=== PATIENT | male | born 1960 | race Two or more races ===

== ENCOUNTER 2019-04-11 18:47 | Emergency (ER) | payer OTHER ==
[2019-04-11] MEDS ORDERED: LIDOCAINE 5% PATCH TOPICAL STA (19:20)
[2019-04-11] MEDS ORDERED: KETOROLAC 30 MG/ML 1 ML VIAL IM STA (19:20)
[2019-04-11] MEDS ORDERED: HYDROcodone/APAP 5-325MG 1 EACH TAB PO STA (19:20)
--- NOTE | 2019-04-11 19:27 | ED ---
Back Pain HPI - General Chief Complaint: Back Pain/Injury Stated Complaint: fell down stairs/back pain Time Seen by Provider: 04/11/19 18:59 Source: patient Limitations: no limitations - History of Present Illness Initial Comments: 58-year-old male patient presents to the emergency department today for evaluation of right sided mid back pain. Patient states yesterday afternoon he fell down approximate 6 steps. Patient states he fell hitting his back on the edge of the stairs. Patient states he's been having significant pain to the area since. Patient states the pain worsens with any type of movement or deep breathing. Patient denies any shortness of breath, cough, hemoptysis with this. He denies hitting his head or losing consciousness during the fall. Denies any other injuries. States he has been urinating without difficulty, denies any hematuria. Denies any abdominal pain. Patient denies any headache, neck pain, chest pain, dizziness, weakness, nausea, vomiting, or difficulties with bowel movements or urination. - Related Data Previous Rx's Medication Instructions Recorded Cephalexin [Keflex] 500 mg PO Q6HR #40 cap 04/11/19 Ketorolac [Toradol] 10 mg PO Q6HR #12 tab 04/11/19 Lidocaine 5% Patch [Lidoderm] 1 patch TOPICAL DAILY #10 patch 04/11/19 Allergies Allergy/AdvReac Type Severity Reaction Status Date / Time No Known Allergies Allergy Verified 04/11/19 18:57 Review of Systems ROS Statement: Those systems with pertinent positive or pertinent negative responses have been documented in the HPI. ROS Other: All systems not noted in ROS Statement are negative. Past Medical History Past Medical History: No Reported History History of Any Multi-Drug Resistant Organisms: None Reported Past Surgical History: Hernia Repair Past Psychological History: No Psychological Hx Reported Smoking Status: Current every day smoker Past Alcohol Use History: None Reported Past Drug Use History: None Reported General Exam Limitations: no limitations General appearance: alert, in no apparent distress, other (Physical well- developed, well-nourished adult male patient in mild distress related to pain. Vital signs upon presentation are temperature 99.3F, pulse 88, respirations 18, blood pressure 124/74, pulse ox 96% on room air.) Eye exam: Present: normal appearance, PERRL, EOMI. Absent: scleral icterus, conjunctival injection, periorbital swelling ENT exam: Present: normal exam, normal oropharynx, mucous membranes moist Neck exam: Present: normal inspection, full ROM, other (Nontender, no step-off, no deformity to firm midline palpation of the posterior cervical spine. Full range of motion without pain or limitation.). Absent: tenderness, meningismus, lymphadenopathy Respiratory exam: Present: normal lung sounds bilaterally, other (Right lower posterior rib tenderness. No crepitus or bony step-off noted.). Absent: respiratory distress, wheezes, rales, rhonchi, stridor Cardiovascular Exam: Present: regular rate, normal rhythm, normal heart sounds. Absent: systolic murmur, diastolic murmur, rubs, gallop, clicks GI/Abdominal exam: Present: soft, normal bowel sounds. Absent: distended, tenderness, guarding, rebound, rigid Back exam: Present: normal inspection, other (Nontender, no step-off, no deformity to firm midline palpation of the thoracic and lumbar vertebrae. ). Absent: vertebral tenderness Neurological exam: Present: alert, oriented X3, CN II-XII intact Psychiatric exam: Present: normal affect, normal mood Skin exam: Present: warm, dry, intact, normal color. Absent: rash Course Vital Signs 04/11/19 04/11/19 04/11/19 18:55 19:10 19:26 Temperature 99.3 F Pulse Rate 88 Respiratory 18 18 16 Rate Blood Pressure 124/74 O2 Sat by Pulse 96 Oximetry Medical Decision Making - Medical Decision Making 58-year-old male patient presents to the emergency department today for evaluation of right posterior rib pain after experiencing a fall down 6 steps last evening. Physical examination did reveal an abrasion and tenderness over the right posterior lower ribs and right flank. Urinalysis was obtained and did show evidence for gross hematuria. Did perform CT of the abdomen and pelvis with contrast which showed no evidence for acute abnormalities, normal kidneys, normal ribs. Urinalysis did have 33 white blood cells and presence of bacteria, this was sent for culture. Will start Keflex for urinary tract infection. He will be treated for clinical rib fracture with blood patches, Toradol, and a starter pack of Tylenol for codeine. He is given incentive spirometry instructed regarding coughing and deep breathing exercises. He'll be given phone number for urology for follow-up regarding the UTI. He is instructed to follow-up with his primary care physician for recheck in 1-2 days. Return parameters were discussed in detail. He verbalizes understanding and agrees this plan - Lab Data Lab Results 04/11/19 Range/Units 19:30 Urine Color Yellow Urine Appearance Clear (Clear) Urine pH 6.0 (5.0-8.0) Ur Specific [place] 1.013 (1.001-1.035) Urine Protein Negative (Negative) Urine Glucose (UA) Negative (Negative) Urine Ketones Negative (Negative) Urine Blood Small H (Negative) Urine Nitrite Negative (Negative) Urine Bilirubin Negative (Negative) Urine Urobilinogen <2.0 (<2.0) mg/dL Ur Leukocyte Esterase Large H (Negative) Urine RBC 11 H (0-5) /hpf Urine WBC 33 H (0-5) /hpf Ur Squamous Epith Cells 3 (0-4) /hpf Urine Mucus Occasional H (None) /hpf Urine Yeast (Budding) Occasional H (None) /hpf - Radiology Data Radiology results: report reviewed, image reviewed 5 views of the right ribs and chest are obtained. Report was reviewed in its entirety. Impression by Dr. Darcy Foley shows no acute process. CT of the abdomen and pelvis was obtained with contrast. Report was reviewed in its entirety. Impression by Dr. Darcy Foley shows no acute abdomen ALLERGIES. Disposition Clinical Impression: Right rib fracture Disposition: HOME SELF-CARE Condition: Good Instructions (If sedation given, give patient instructions): Urinary Tract Infection in Men (ED), Rib Fracture (ED) Additional Instructions: Use medications as directed for pain control. Perform coughing and deep breathing exercises as directed at least 10 times an hour while awake to prevent pneumonia. Complete antibiotic prescription for urinary tract infection. Follow up with urologist for further evaluation. Return to the emergency department immediately for any new, worsening, or concerning symptoms. Prescriptions: Cephalexin [Keflex] 500 mg PO Q6HR #40 cap Lidocaine 5% Patch [Lidoderm] 1 patch TOPICAL DAILY #10 patch Ketorolac [Toradol] 10 mg PO Q6HR #12 tab Is patient prescribed a controlled substance at d/c from ED?: No Referrals: Rohan Soares MD [STAFF PHYSICIAN] - 1-2 days Time of Disposition: 21:37
[2019-04-11 19:48] LABS: Appearance,Urine Clear (Clear); Bilirubin,Urine Negative (Negative); Blood,Urine Small (Negative); Budding Yeast,Urine Occasional /hpf; Color,Urine Yellow; Glucose,Urine (UA) Negative (Negative); Ketones,Urine Negative (Negative); Leukocyte Esterase,Urine Large (Negative); Mucus,Urine Occasional /hpf; Nitrite,Urine Negative (Negative); Protein,Urine Negative (Negative); RBC,Urine 11 /hpf (0-5); Specific Gravity,Urine 1.013 (1.001-1.035); Squamous Epithelial Cell,Urine 3 /hpf (0-4); Urobilinogen,Urine <2.0 mg/dL (<2.0); WBC,Urine 33 /hpf (0-5)
--- NOTE | 2019-04-11 20:18 | XR ---
PROCEDURE: XR ribs RT w pa chest xray - 5V DATE AND TIME: 04/11/2019 7:39 PM CLINICAL INDICATION: Right rib pain posteriorly, following fall yesterday TECHNIQUE: Department protocol COMPARISON: None FINDINGS: There is no fracture or malalignment. No pleural effusion or pneumothorax. The soft tissues are unremarkable. No incidental findings. IMPRESSION: NO ACUTE PROCESS.
--- NOTE | 2019-04-11 21:33 | CT ---
EXAMINATION TYPE: CT abdomen pelvis w con DATE OF EXAM: 04/11/2019 COMPARISON: None HISTORY: Pt fell down backward down 6 stairs yesterday. Thoracolumbar pain and bruising CT DLP: 570 mGycm Automated exposure control for dose reduction was used. TECHNIQUE: Helical acquisition of images was performed from the lung bases through the pelvis. CONTRAST: Performed without Oral Contrast and with IV Contrast, patient injected with 100 mL of Isovu e 300. FINDINGS: LUNG BASES: No significant abnormality is appreciated. LIVER/GB: No significant abnormality is appreciated. PANCREAS: No significant abnormality is seen. SPLEEN: No significant abnormality is seen. ADRENALS: No significant abnormality is seen. KIDNEYS: No significant abnormality is seen. FREE AIR: No free air is visualized. RETROPERITONEAL ADENOPATHY: None visualized REPRODUCTIVE ORGANS: No significant abnormality is seen URINARY BLADDER: No significant abnormality is seen. PELVIC ADENOPATHY: None visualized. OSSEOUS STRUCTURES: No significant abnormality is seen. Spine is negative.1 BOWEL: No significant abnormality is seen. OTHER: No acute vascular findings. IMPRESSION: NO ABNORMALITIES.
[2019-04-11] MEDS ORDERED: CEPHALEXIN 500MG STARTER PACK 4 CAP BTL PO STA (21:38)
[2019-04-11] MEDS ORDERED: ACET/COD 300 MG/30 MG STARTER PACK 6 TAB BTL PO STA (21:38)
[2019-04-11 21:49] VITALS: BP 121/64; PULSE 74; RESP 20; TEMP 98.1
== END 2019-04-11 21:45 | disposition home or self-care (01) ==
LOC: EC 18:47
DX: S22.31XA Fracture of one rib, right side, initial encounter for closed fracture (principal); R31.0 Gross hematuria; F17.200 Nicotine dependence, unspecified, uncomplicated; W10.9XXA Fall (on) (from) unspecified stairs and steps, initial encounter
CPT/HCPCS: 81001; 71101; 74177; 99284; 96372; J1885; Q9967